=== PATIENT | female | born 1950 | race Caucasian/White ===

== ENCOUNTER → 2017-03-27 | Outpatient (CLI) | payer OTHER ==
[~2017-03-27] MED LIST: ATORVASTATIN CA10 MG PO; BENICAR20 MG PO; LASIX20 MG PO; LIPITOR40 MG PO; MOTRIN600 MG PO; NORCO 7.5/321 TABLET PO; SYMBICORT60 INHALAT IH; TIROSINT75 MCG PO; ZOLOFT25 MG PO
== END | disposition home or self-care (01) ==
LOC: EKG 13:46
DX: I51.7 Cardiomegaly (principal); R94.31 Abnormal electrocardiogram [ECG] [EKG]
CPT/HCPCS: 93306